=== PATIENT | male | born 1970 | race Caucasian/White ===

== ENCOUNTER 2022-02-10 02:48 | Emergency (ER) | payer OTHER ==
[~2022-02-10 02:48] MED LIST: FLEXERIL 10 MG10 MG PO; IBUPROFEN800 MG PO
== END 2022-02-10 04:23 | disposition home or self-care (01) ==
LOC: ER1 02:48
DX: I87.8 Other specified disorders of veins (principal); L30.9 Dermatitis, unspecified; M79.671 Pain in right foot; M79.672 Pain in left foot; G89.29 Other chronic pain; F15.10 Other stimulant abuse, uncomplicated; F19.90 Other psychoactive substance use, unspecified, uncomplicated
CPT/HCPCS: 99283